=== PATIENT | male | born 1955 | race Caucasian/White ===

== ENCOUNTER 2022-12-06 05:55 | Inpatient (IN) | payer MEDICARE, SELFPAY ==
[2022-12-06] VITALS (20 sets, daily range): BP systolic 96–124; BP diastolic 52–78; PULSE 54–69; RESP 12–25; TEMP 36.1–36.8; O2SAT 92–100; BMI 19.3
--- NOTE | ~2022-12-06 | XR_ITS ---
EXAMINATION: XR chest 1V portable DATE: 12/06/2022 06:35 INDICATION: ST elevation myocardial infarction TECHNIQUE: frontal view of the chest was obtained. COMPARISON: None FINDINGS: Emphysema with bullous changes at the bilateral apices. Minimal linear atelectasis/scarring at the bi lateral lung bases. Small calcified nodules at the bilateral lung bases consistent with old granuloma tous disease. The cardiomediastinal silhouette is normal. IMPRESSION: 1. Emphysema with bullous changes at the apices and minimal bibasilar atelectasis. Reviewed, dictated and finalized at location A. [facility] [employer] IMPRESSION: 1. Emphysema with bullous changes at the apices and minimal bibasilar atelectas is.
--- NOTE | 2022-12-06 06:00 | WPDMODSED ---
Moderate Sedation Note-Pt Data Patient Data Allergies Allergy/AdvReac Type Severity Reaction Status Date / Time No Known Allergies Allergy Unverified 12/06/22 05:59 Current Medications: Active Medications Heparin Sodium (Porcine) (Heparin Sodium 5,000 Units/Ml Vial) 4,000 units IV PUSH PRN PRN PRN Reason: aPTT less than 55 seconds Heparin Sodium (Porcine) (Heparin Sodium 5,000 Units/Ml Vial) 2,500 units IV PUSH PRN PRN PRN Reason: aPTT 55 - 70 seconds Heparin Sodium/Dextrose (Heparin Sodium/D5w 100 Units/Ml) 25,000 units in 250 mls @ 7 mls/hr IV CONT .Q24H CARMEN; Protocol Sedation/Anesthesia: No previous sedation/anesthesia problems (including family history). [facility] Surgical History Surgical History Hx of right BKA Social History Social History Social History: Smokes pack a day, denies alcohol or drug use Mod Sed Physical Exam Physical Exam Pre Procedural Exam: Normal: Appearance, Eyes, Ears, Nose, Neck, Throat, Airway, Lungs, Heart Size, Heart Rate, Heart Rhythm, Neuro Exam, Abdomen, Liver, Kidneys, Spleen, Breasts, Genitalia, Extremities and Skin Hours since solid foods: 8 Hours since liquid intake: 8 Mallampati Classification: class 1 Internal Medicine - PN: Obj Da Vital Signs Vital Signs: Vital Signs - 24 hr 12/06/22 05:55 12/06/22 06:00 Pulse Rate 69 Respiratory Rate 20 Pulse Oximetry 97 97 Oxygen Delivery Room Air Nasal Cannula Oxygen Flow Rate 2 Meds/Results Medications: Active Medications Generic Name Dose Route Start Last Admin Trade Name Freq PRN Reason Stop Dose Admin Heparin Sodium (Porcine) 4,000 units 12/06/22 06:02 Heparin Sodium 5,000 Units/Ml Vial IV PUSH PRN PRN aPTT less than 55 seconds Heparin Sodium (Porcine) 2,500 units 12/06/22 06:02 Heparin Sodium 5,000 Units/Ml Vial IV PUSH PRN PRN aPTT 55 - 70 seconds Heparin Sodium/Dextrose 25,000 units in 250 mls @ 7 mls/hr 12/06/22 06:25 Heparin Sodium/D5w 100 Units/Ml IV CONT .Q24H [facility] Protocol 700 UNITS/HR Radiology Results: ITS Impressions Chest X-Ray 12/06/22 06:50 IMPRESSION: 1. Emphysema with bullous changes at the apices and minimal bibasilar atelectasis. Labs 12/06/22 06:09 12/06/22 06:09 Labs: Laboratory Results - last 24 hr 12/06/22 12/06/22 12/06/22 06:09 06:09 06:09 WBC 12.4 H RBC 4.65 Hgb 14.4 Hct 43.8 MCV 94.2 MCH 31.0 MCHC 32.9 RDW 12.8 Plt Count 260 MPV 10.6 H Immature Gran % (Auto) 0.4 Neut % (Auto) 45.1 L Lymph % (Auto) 41.2 [place] % (Auto) 8.7 H Eos % (Auto) 4.2 Baso % (Auto) 0.4 Lymph # (Auto) 5.09 H [place] # (Auto) 1.1 H Eos # (Auto) 0.5 H Baso # (Auto) 0.1 Abs Immat Gran (auto) 0.05 H Absolute Neuts (auto) 5.6 Absolute Nucleated RBC 0.0 Nucleated RBC % 0.0 PT 13.0 INR 1.0 APTT 34.0 Sodium 136 L Potassium 3.6 Chloride 107 Carbon Dioxide 21 L Anion Gap 8 BUN 19 Creatinine 0.70 Estim Creat Clear Calc 75 Estimated GFR > 60 Glucose 168 H Calcium 8.4 Total Bilirubin 0.6 AST 106 H ALT 84 H Alkaline Phosphatase 72 Troponin I < 0.012 Total Protein 7.0 Albumin 3.9 Triglycerides 127 Cholesterol 164 LDL Cholesterol Direct 89 HDL Direct 42 Blood Type Antibody Screen 12/06/22 06:09 WBC RBC Hgb Hct MCV MCH MCHC RDW Plt Count MPV Immature Gran % (Auto) Neut % (Auto) Lymph % (Auto) [place] % (Auto) Eos % (Auto) Baso % (Auto) Lymph # (Auto) [place] # (Auto) Eos # (Auto) Baso # (Auto) Abs Immat Gran (auto) Absolute Neuts (auto) Absolute Nucleated RBC Nucleated RBC % PT INR APTT Sodium Potassium Chloride Carbon Dioxide Anion Gap BUN Creatinine Estim Creat Clear Calc E
--- NOTE | 2022-12-06 06:02 | ECG_ITS ---
Measurements Intervals [place] Rate: 56 P: 55 DE: 120 QRS: 86 QRSD: 125 T: 92 QT: 429 QTc: 416 Interpretive Statements SINUS BRADYCARDIA INFEROLATERAL ST ELEVATION MYOCARDIAL INFARCT- ACUTE POSTERIOR INFARCT- ACUTE ABNORMAL ECG NO PREVIOUS ECG AVAILABLE FOR COMPARISON Electronically Signed On 12-06-2022 7:01:27 [employer] SPECIALIST by Antonio De La Garza D.O.
--- NOTE | 2022-12-06 06:04 | ED.GENADULT ---
HPI - General Adult General Chief complaint: Chest Pain Stated complaint: chest pain, STEMI Time Seen by Provider: 12/06/22 06:31 History of Present Illness HPI narrative: This 67-year-old male smoker presenting to ED with chest pain. Starting 30 minutes prior to arrival he started to have heavy chest pressure on the left side of his chest that radiated to both arms. It is 10/10 intensity and constant. He has never experienced pain like this before there are no exacerbating or alleviating symptoms. Associated with nausea and diaphoresis but no vomiting. Denies fever chills productive cough, abdominal pain or numbness tingling weakness in the extremity. Related Data Allergies Allergy/AdvReac Type Severity Reaction Status Date / Time No Known Allergies Allergy Unverified 12/06/22 05:59 [facility] Surgical History Surgical History Hx of right BKA Social History Social History Social History: Smokes pack a day, denies alcohol or drug use Exam Narrative: APPEARANCE: patient is diaphoretic. appears very uncomfortable Head: atraumatic. EYES: EOMI, NOSE: Atraumatic NECK: Trachea midline RESPIRATORY: increased rate of breathing, clear lung sounds bilaterally CARDIOVASCULAR: RRR, +2 pulses 3 of 4 extremities.(R Bka) ABDOMINAL: Non-distended , no guarding or rebound MUSCULOSKELETAl: No obvious deformities NEURO: Alert. Moving 4/4 extremities SKIN:: pale and diaphoretic PSYCHIATRIC: Normal affect Course Vital Signs Vital signs: Vital Signs Pulse Rate 69 12/06/22 05:55 Respiratory Rate 20 12/06/22 05:55 Pulse Oximetry 97 12/06/22 05:55 Oxygen Delivery Room Air 12/06/22 05:55 Pulse Rate 69 12/06/22 05:55 Respiratory Rate 20 12/06/22 05:55 Pulse Oximetry 97 12/06/22 06:00 Oxygen Delivery Nasal Cannula 12/06/22 06:00 Oxygen Flow Rate 2 12/06/22 06:00 Medical Decision Making [facility] Narrative Medical decision making narrative: -Presentation: 67-year-old male presenting with chest pain and STEMI pattern on EKG -DDX includes but is not limited to: ACS, dissection, PE -Co-morbidities complicating care: daily smoker -Social determinants of health: noncontributory -External Chart Review: none -Hx from independent Sources: EMS -Discussion of Management/Consultants: Dr. Winslow - [employer] -Independent interpretation of studies: Independent EKG interpretation: Rhythm [sinus], Rate [56], [place] -[normal], [place] -[normal], QRS [narrow], QTC [normal], T waves -[negative for concerning inversions], ST Segments - ST segment elevations in the inferior leads with reciprocal changes in V1 V2 1 and aVL Final interpretations: Inferior STEMI Dx tests considered but not ordered:None -Procedures: -Interventions: 325 mg aspirin given by the custodial, 4000 units heparin load, 100 mcg fentanyl, 50 mcg fentanyl -Shared decision making / Disposition: patient presented with a STEMI pattern and crushing chest pain. label printer was activated. Case was discussed with Dr. Winslow has agreed to take him to the builder's labourer. Patient was given a heparin load. Continued to have crushing chest pain and was given fentanyl. Nitro is contraindicated inferior LA. Patient was still incredibly uncomfortable given another 50 mcg of fentanyl. At this time the builder's labourer team arrived and took over management of the patient. -RX Vital Signs Vital Signs: Vital Signs Pulse Rate 69 12/06/22 05:55 Respiratory Rate 20 12/06/22 05:55 Pulse Oximetry 97 12/06/22 05:55 Oxygen Delivery Room Air 12/06/22 05:55 Pulse Rate 69 12/06/22 05:55 Respiratory Rate 20 12/06/22 05:55 Pulse Oximetry 97 12/06/22 06:00 Oxygen Delivery Nasal Cannula 12/06/22 06:00 Oxygen Flow Rate 2 12/06/22 06:00 Lab Data 12/06/22 06:09 12/06/22 06:09 Critical Care Time C
[2022-12-06] MEDS: HEPARIN SODIUM 5,000 UNITS/ML VIAL 4000 UNITS IV PUSH (06:06)
[2022-12-06] MEDS: ONDANSETRON INJ 4 MG/2 ML VIAL IV PUSH (06:10)
[2022-12-06] MEDS: fentaNYL CITRATE INJ (*CRX) 100 MCG/2 ML VIAL IV PUSH (06:14)
[2022-12-06 06:21] LABS: Basophils Absolute Auto 0.1 K/mm3 (0.0-0.1); Basophils Percent Auto 0.4 % (0.2-1.2); Eosinophils Absolute Auto 0.5 K/mm3 (0-0.3); Eosinophils Percent Auto 4.2 % (0-4.4); Hematocrit 43.8 % (42.0-52.0); Hemoglobin 14.4 g/dL (14.0-18.0); Immature Granulocyte Absolute 0.05 K/mm3 (0.00-0.031); Immature Granulocyte Percent A 0.4 % (0-0.5); Lymphocytes Absolute Auto 5.09 K/mm3 (0.9-3.2); Lymphocytes Percent Auto 41.2 % (18.3-44.2); Mean Corpuscular HGB Conc 32.9 g/dl (32-36); Mean Corpuscular Volume 94.2 fl (80-100); Mean Platelet Volume 10.6 fl (7.4-10.4); Monocytes Absolute Auto 1.1 K/mm3 (0.1-0.6); Monocytes Percent Auto 8.7 % (2.6-8.5); Neutrophils Absolute Auto 5.6 K/mm3 (1.3-6.7); Neutrophils Percent Auto 45.1 % (45.5-73.1); Platelet Count Result 260 k/mm3 (150-375); Red Blood Count 4.65 M/mm3 (4.6-6.20); Red Cell Distribution Width 12.8 % (11.5-14.5); White Blood Count 12.4 K/mm3 (4.5-10.0)
[2022-12-06] MEDS: fentaNYL CITRATE INJ (*CRX) 100 MCG/2 ML VIAL 50 MCG IV PUSH (06:27)
[2022-12-06 06:33] LABS: Alanine Aminotransferase 84 U/L (6-50); Albumin Level 3.9 g/dL (3.5-5.1); Alkaline Phosphatase 72 U/L (38-126); Anion Gap 8 mmol/L (8-16); Aspartate Amino Transferase 106 U/L (17-59); Bilirubin,Total 0.6 mg/dL (0.2-1.3); Blood Urea Nitrogen 19 mg/dL (9-20); Calcium 8.4 mg/dL (8.4-10.2); Carbon Dioxide 21 mmol/L (22-30); Chloride 107 mmol/L (98-107); Cholesterol 164 mg/dL (0-200); Estimated CRCL calculation 75 ml/min; Estimated Glomerular Filt Rate > 60; Glucose 168 mg/dL (65-110); HDL Direct 42 mg/dL; Potassium 3.6 mmol/L (3.4-5.0); Sodium 136 mmol/L (137-145); Triglycerides 127 mg/dL (<150)
[2022-12-06 06:42] LABS: Troponin I < 0.012 ng/mL (0.000-0.034)
[2022-12-06 06:43] LABS: LDL Cholesterol Direct 89 mg/dL
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
--- NOTE | 2022-12-06 07:35 | ADMGEN ---
This patient, Eliseo Zambrano, was admitted to Intensive Care Unit-9. Patient/family oriented to hospital policies and general routines including ID bracelet, bed and alarms, visiting hours, pain management, procedures, bathroom and other care routines, personal items, smoking policy, room service/diet, and visiting hours. Information on how to activate the Rapid Response Team has been discussed. Patient/Family are encouraged to report perceived risks to care and to ask questions if they do not understand what they are told or what they should do.
--- NOTE | 2022-12-06 07:42 | WPDHPUPDATE1 ---
History and Physical Update Update Date/Time: 12/06/22 0600 History and Physical has been reviewed, including an updated exam of the patient. There are NO changes in the patient's condition. Risks, benefits, and alternatives have been discussed and questions answered. Patient agrees to proceed with procedure.
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
--- NOTE | 2022-12-06 07:52 | ECHO_ITS ---
Patient Info Name: Eliseo Zambrano Age: 67 years : 1955 Gender: Male Ht: 70 in Wt: 130 lbs BSA: 1.69 m2 BP: 106 / 75 mmHg Heart Rhythm: Sinus Rhythm, Bradycardia Exam Date: 12/06/2022 1:29 PM Exam Location: [facility] Patient Status: Inpatient Admit Date: 12/06/2022 Staff Ordering Physician: Liliana Winslow MD Area Plant Manager: Javon Navarrete, BLAIR, RT Attending Provider: Liliana Winslow MD Referring Physician: Nayla PARK; Exam Type: CA echo doppler color flow Study Info Indications I21.3 - ST elevation (STEMI) myocardial infarction of unspecified site Complete two-dimensional, color flow and Doppler transthoracic echocardiogram is performed with contrast to opacify the left ventricle and to improve the deliniation of the left ventricle endocardial borders. Strain analysis performed. Summary 1. Left ventricular chamber dimension is normal. 2. Left ventricular systolic function is mildly reduced, estimated at 45-50%. 3. There is hypokinesis of the mid inferolateral wall. 4. Right ventricular systolic function is normal. 5. Left atrial chamber dimension is mildly enlarged. 6. There is moderate mitral valve regurgitation. 7. There is mild tricuspid valve regurgitation. 8. Dilated inferior vena cava with <50% collapse upon inspiration consistent with elevated right atrial pressure, 15 mmHg. 9. Suspected patent foramen ovale visualized by color flow imaging. Left Ventricle There is hypokinesis of the mid inferolateral wall. Left ventricular chamber dimension is normal. Left ventricular systolic function is mildly reduced, estimated at 45-50%. Global longitudinal strain is abnormal at -15 %. Right Ventricle Right ventricular chamber dimension is normal. Right ventricular systolic function is normal. Left Atria Left atrial chamber dimension is mildly enlarged. Right Atria Right atrial chamber dimension is normal. Atrial Septum Suspected patent foramen ovale visualized by color flow imaging. Aortic Valve The aortic valve is not well visualized. There is no aortic valve stenosis. There is no aortic valve regurgitation. Pulmonic Valve The pulmonic valve is not well visualized. Mitral Valve The mitral valve has normal leaflets. There is moderate mitral valve regurgitation. Tricuspid Valve The tricuspid valve leaflets are normal. There is mild tricuspid valve regurgitation. Pericardium/Pleural There is no pericardial effusion. Inferior Vena Cava Dilated inferior vena cava with <50% collapse upon inspiration consistent with elevated right atrial pressure, 15 mmHg. Aorta The aortic root size at the sinus of Valsalva is normal. Left Ventricular Outflow Tract Name Value Normal LVOT Doppler LVOT Peak Gradient 3 mmHg LVOT Mean Gradient 1 mmHg LVOT VTI 17 cm LVOT VTI/AV VTI Ratio 0.9 Mitral Valve Name Value Normal MV Doppler
--- NOTE | 2022-12-06 07:55 | ECG_ITS ---
Measurements Intervals [place] Rate: 58 P: 81 SC: 164 QRS: -87 QRSD: 100 T: -17 QT: 445 QTc: 438 Interpretive Statements SINUS BRADYCARDIA LEFT AXIS DEVIATION INFERIOR INFARCT, PROBABLY RECENT BASELINE WANDER- V3 ABNORMAL ECG COMPARED TO ECG 12/06/2022 05:59:41 ST ELEVATION RESOLVED Electronically Signed On 12-06-2022 8:46:58 RECORDS TECH by Antonio PARTIDA
[2022-12-06] MEDS: SODIUM CHLORIDE 0.9% IV 1,000 ML 100 ML IV CONT (08:22)
--- NOTE | 2022-12-06 08:42 | PC.NURSE ---
Cardiopulmonary Rehab Services flyer was given to patient in admission folder.
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
[2022-12-06 11:07] LABS: Hemoglobin A1C 5.5 % (<5.7)
[2022-12-06] MEDS: ATORVASTATIN 40 MG TABLET 80 MG PO (12:37)
[2022-12-06] MEDS: METOPROLOL SUCCINATE EXT REL 25 MG TABCR PO (12:37)
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
[2022-12-06] MEDS: PERFLUTREN LIPID MICROSPHERES 1.5 ML VIAL DILUTED TO 10 ML TOTAL VOLUME IV PUSH (13:43)
--- NOTE | 2022-12-06 13:44 | IVDEFINITY ---
Prior to administration of IV Definity the patient was educated on the risks and benefits of the imaging enhancing agent including potential adverse side effects. The patient verbalized understanding. Allergies were verified. No exclusion criteria were identified and at least one of the following inclusion criteria were met: 1) physician request, 2) patient technically difficult to image (per the [place] [employer] guidelines of two or more segments not discernable within the apical view), or 3) questionable left ventricular function. ?
--- NOTE | 2022-12-06 14:07 | PC.NURSE ---
Patient had a 10-beat run of wide complex tachycardia. Dr. De La Fuente was notified. Metoprolol has been administered today post PCI. No new orders received; continue to monitor per MD.
[2022-12-06] MEDS: TICAGRELOR 90 MG TABLET PO (19:35)
[2022-12-06] MEDS: HYDROcodone/acetaminophen (*CRX) 5-325 MG TABLET 1 TAB PO (19:35)
[2022-12-07] VITALS: BP 112/58; PULSE 53; PULSE 55; PULSE 56; RESP 13; RESP 16; TEMP 36.6; O2SAT 97; O2SAT 98
[2022-12-07 02:00] VITALS: PULSE 55
[2022-12-07 04:00] VITALS: BP 111/73; PULSE 60; PULSE 61; RESP 16; RESP 17; TEMP 36.9; O2SAT 98
[2022-12-07 04:58] LABS: Basophils Percent Auto 0.3 % (0.2-1.2); Eosinophils Absolute Auto 0.2 K/mm3 (0-0.3); Eosinophils Percent Auto 1.6 % (0-4.4); Hematocrit 41.6 % (42.0-52.0); Hemoglobin 13.6 g/dL (14.0-18.0); Immature Granulocyte Absolute 0.05 K/mm3 (0.00-0.031); Immature Granulocyte Percent A 0.5 % (0-0.5); Lymphocytes Absolute Auto 2.05 K/mm3 (0.9-3.2); Lymphocytes Percent Auto 19.7 % (18.3-44.2); Mean Corpuscular HGB Conc 32.7 g/dl (32-36); Mean Corpuscular Hemoglobin 30.1 pg (26-34); Mean Platelet Volume 10.8 fl (7.4-10.4); Monocytes Percent Auto 9.6 % (2.6-8.5); Neutrophils Absolute Auto 7.1 K/mm3 (1.3-6.7); Neutrophils Percent Auto 68.3 % (45.5-73.1); Platelet Count Result 233 k/mm3 (150-375); Red Blood Count 4.52 M/mm3 (4.6-6.20); White Blood Count 10.4 K/mm3 (4.5-10.0)
[2022-12-07 05:30] LABS: Anion Gap 3 mmol/L (8-16); Blood Urea Nitrogen 12 mg/dL (9-20); Calcium 8.9 mg/dL (8.4-10.2); Carbon Dioxide 23 mmol/L (22-30); Chloride 107 mmol/L (98-107); Estimated CRCL calculation 89 ml/min; Estimated Glomerular Filt Rate > 60; Glucose 100 mg/dL (65-110); Magnesium 1.8 mg/dL (1.6-2.3); Potassium 4.1 mmol/L (3.4-5.0); Sodium 133 mmol/L (137-145)
[2022-12-07 06:00] VITALS: PULSE 55
[2022-12-07 08:00] VITALS: BP 128/68; PULSE 58; PULSE 63; RESP 26; TEMP 37; O2SAT 95
[2022-12-07 08:14] VITALS: PULSE 60
[2022-12-07] MEDS: TICAGRELOR 90 MG TABLET PO (08:14)
[2022-12-07] MEDS: METOPROLOL SUCCINATE EXT REL 25 MG TABCR PO (08:14)
[2022-12-07] MEDS: ASPIRIN 81 MG CHEWABLE TABLET PO (08:14)
[2022-12-07] MEDS: ATORVASTATIN 40 MG TABLET 80 MG PO (08:15)
[2022-12-07] MEDS: ENOXAPARIN 40 MG/0.4 ML SYRINGE SUB-Q (09:11)
--- NOTE | 2022-12-07 09:12 | PM.DS ---
DS: Admitting Diagnosis Discharge Date 12/07/2022 Admitting Diagnosis STEMI DS: Discharge Diagnosis Discharge Diagnosis (1) ST elevation (STEMI) myocardial infarction: Code(s): I21.3 - ST elevation (STEMI) myocardial infarction of unspecified site Status: Acute (2) Tobacco abuse: Code(s): Z72.0 - Tobacco use Status: Acute (3) Hx of right BKA: Code(s): Z89.511 - Acquired absence of right leg below knee Status: Acute DS: Summary Hospital Course Hospital Course: Presented with inferior STEMI. Underwent primary PCI with 1 stent to the proximal-mid RCA. Mid LAD with 40-50% stenosis. ASA 81mg once daily indefinitely. Brilinta 90mg BID for at least 1 year. High-intensity statin. Beta calvin. Referral to cardiac rehab placed. TTE post PCI: ?1. Left ventricular chamber dimension is normal. ? 2. Left ventricular systolic function is mildly reduced, estimated at 45-50%. ? 3. There is hypokinesis of the mid inferolateral wall. ? 4. Right ventricular systolic function is normal. ? 5. Left atrial chamber dimension is mildly enlarged. ? 6. There is moderate mitral valve regurgitation. ? 7. There is mild tricuspid valve regurgitation. ? 8. Dilated inferior vena cava with <50% collapse upon inspiration consistent with elevated right atrial pressure, 15 mmHg. ? 9. Suspected patent foramen ovale visualized by color flow imaging. Patient lives in [place]. Discussed with patient that he will need to establish care with a property management coordinator back home for follow-up. Time Spent with Patient Time attestation: Total time spent providing and/or coordinating discharge services: Exam Const: General: comfortable and no acute distress HENMT: Mouth: Yes moist mucous membranes Eyes: General: appearance normal, both eyes and all related structures Sclera: sclerae normal Neck: Neck: supple Resp: Effort & Inspection: normal respiratory effort Auscultation: clear to auscultation bilaterally Cardio: Rate: regular rate Heart sounds: no murmurs Other: Reproducible chest pain on exam GI: GI Palp: Yes Soft to palpation and No Tenderness to palpation present (GI) Skin: General skin exam: normal color Neuro: Speech: normal speech Extrem: Other: R BKA Psych: Mental Status: mental status grossly normal Affect: normal affect DS: Data Data Completed and Pending Labs on day of discharge: Labs from last 24 hours 12/07/22 12/07/22 12/06/22 04:24 04:24 12:18 WBC 10.4 H RBC 4.52 L Hgb 13.6 L Hct 41.6 L MCV 92.0 MCH 30.1 MCHC 32.7 RDW 13.0 Plt Count 233 MPV 10.8 H Immature Gran % (Auto) 0.5 Neut % (Auto) 68.3 Lymph % (Auto) 19.7 Stanton % (Auto) 9.6 H Eos % (Auto) 1.6 Baso % (Auto) 0.3 Lymph # (Auto) 2.05 Stanton # (Auto) 1.0 H Eos # (Auto) 0.2 Baso # (Auto) 0.0 Abs Immat Gran (auto) 0.05 H Absolute Neuts (auto) 7.1 H Absolute Nucleated RBC 0.0 Nucleated RBC % 0.0 Sodium 133 L Potassium 4.1 Chloride 107 Carbon Dioxide 23 Anion Gap 3 L BUN 12 D Creatinine 0.60 L Estim Creat Clear Calc 89 Estimated GFR > 60 Glucose 100 Hemoglobin A1c Calcium 8.9 Magnesium 1.8 Troponin I 56.000 H* D 12/06/22 12/06/22 09:00 06:08 WBC RBC Hgb Hct MCV MCH MCHC RDW Plt Count MPV Immature Gran % (Auto) Neut % (Auto) Lymph % (Auto) Stanton % (Auto) Eos % (Auto) Baso % (Auto) Lymph # (Auto) Stanton # (Auto) Eos # (Auto) Baso # (Auto) Abs Immat Gran (auto) Absolute Neuts (auto) Absolute Nucleated RBC Nucleated RBC % Sodium Potassium Chloride Carbon Dioxide Anion Gap BUN Creatinine Estim Creat Clear Calc Estimated GFR Glucose Hemoglobin A1c 5.5 Calcium Magnesium Troponin I 15.700 H* D Discharge Plan Discharge Attending physician on discharge: Mich De La Fuente Consulting providers: Pérez
== END 2022-12-07 09:24 | disposition home or self-care (01) | DRG 247 ==
LOC: ANHED 06:06 → ANHICU 06:18
PROVIDERS: Admitting Provider Internal Medicine Cardiovascular Disease; Emergency Provider Emergency Medicine; Visit Provider Internal Medicine
PROC: 4A023N7 Measurement of Cardiac Sampling and Pressure, Left Heart, Percutaneous Approach (ICD-10-PCS; CPT 93452; principal; 2022-12-06 06:30)
PROC: 027034Z Dilation of Coronary Artery, One Artery with Drug-eluting Intraluminal Device, Percutaneous Approach (ICD-10-PCS; 2022-12-06 06:30)
DX: I21.11 ST elevation (STEMI) myocardial infarction involving right coronary artery (principal); F17.210 Nicotine dependence, cigarettes, uncomplicated; Z89.511 Acquired absence of right leg below knee
CPT/HCPCS: 36415; 71045; 80048; 80053; 80061; 83036; 83735; 84484; 85025; 85610; 85730; 86850; 86900; 86901; 93005; 93458; 96374; 99285; A9270; C1725; C1757; C1769; C1874; C1887; C1894; C8929; C9606; J0583; J1644; J1650; J2270; J2405; J3010; J7030; J7040; Q9957